=== PATIENT | male | born 1970 | race Caucasian/White ===

== ENCOUNTER 2024-12-21 14:25 | Emergency (ER) | payer OTHER, SELFPAY ==
[2024-12-21 14:37] VITALS: BP 174/110
--- NOTE | 2024-12-21 15:34 | ED.GENMED ---
History of Present Illness
General
Chief Complaint: Flank Pain
Source: patient and spouse
Exam Limitations: none
Time Seen by Provider: 12/21/24 15:20
Nursing documentation reviewed up to this point in time: agreed with
History of Present Illness
History of Present Illness:
54-year-old male with a past medical history of hypertension, hyperlipidemia who presents to the emergency room for evaluation of flank pain. Patient reports onset of symptoms this morning around 11 AM and have been waxing and waning since then.
He reports a sharp pain in the right flank. Radiates towards the tip of the penis. No clear triggering or relieving factors noted. He denies any trauma or injury. He says he did notice some faint hematuria yesterday but has not noticed any
dysuria. He denies any fevers or chills. He has had some nausea and a few episodes of vomiting today. He says he had similar symptoms with a kidney stone in the past although it has been many years since his last stone.
Past History
Past History
ED Past Medical History: Other (kidney stone )
ED Past Surgical History: None
Social History
Tobacco: Non-smoker
Alcohol: None
Drug: None
Personal:
Living: with family
Employment: Employed
Family History
Family History: Other (no significant)
Review of Systems
Review of Systems
All Other Systems: ROS reviewed and negative except as documented in HPI and ROS
Constitutional: Denies fever or chills
Respiratory: Denies trouble breathing
Cardiac: Denies chest pain
ABD/GI: Reports nausea and vomiting; Denies abdominal pain
: Reports flank pain and bleeding (Faint hematuria); Denies dysuria
Neurological: Denies headache
Phy Exam
Physical Exam
Physical Exam:
General: Awake, alert; no acute distress
Head: Normocephalic, atraumatic
Eyes: Conjunctiva normal, sclera anicteric
Throat: Airway intact, handling secretions
Neck: Trachea midline, supple without meningismus
Lungs: Breathing comfortably no distress
Heart: Regular rate
Abd: Soft, non distended, nontender
Back: No CVA tenderness
Neuro: No gross deficits
Skin: no rash in area of concern
Extremities: Warm and well-perfused
Scores
Heart Failure Risk
Heart Failure Risk Score: Not Applicable
Heart Score for Chest Pain Patients
STEMI patient?: Not applicable
Withdrawal Assessment of Alcohol
Withdrawal Assessment Completed?: Not applicable
Course
Orders/Labs/Results
Orders:
Orders
12/21/24 15:33
CT Abd/pel Without Iv Or Oral Urgent
Comment:
Reason For Exam: right flank pain
0.9% Sodium Chloride 1000 ml [Nss] 1,000 ml IV BOLUS
Ketorolac [Toradol] 15 mg IV NOW STA
Ondansetron Injectable [Zofran] 4 mg IV NOW STA
12/21/24 15:48
Complete Blood Count/With Diff Urgent
Comprehensive Metabolic Panel Urgent
12/21/24 17:50
Urinalysis Reflex To Culture Urgent
Date Specimen was Collected: 12/21/24
Time Specimen was Collected: 17:48
Urine Microscopic Reflex Cult Urgent
Urine Culture Urgent
[place] Source: U
Specimen Description:
Obtained by: Random
Date Specimen was Collected: 12/21/24
Time Specimen was Collected: 17:48
12/21/24 17:57
Tamsulosin [Flomax] 0.4 mg PO NOW STA
Abnormal Lab Results
12/21/24 12/21/24
15:48 17:50
MPV 10.7 H fL
(7.4-10.4)
Abs Immat Gran (auto) 0.1 H 10^3/uL
(0-0.05)
Absolute Neuts (auto) 8.8 H 10^3/uL
(1.4-6.5)
Absolute Lymphs (auto) 0.7 L 10^3/uL
(1.2-3.4)
Immature Gran % 0.6 H %
(0-0.5)
Neutrophils % 85.8 H %
(42.2-75.2)
Lymphocytes % 7.2 L %
(20.5-51.1)
Creatinine 1.5 H mg/dL
(0.7-1.3)
Glucose 153 H mg/dl
(70-99)
Ur Occult Blood Reflex 1+ A
(Negative)
Leukocyte Esterase Rfl 2+ A
(Negative)
12/21/24 15:48
12/21/24 15:48
Vital Signs
Initial and Last Documented VS:
Initial Vital Signs
Temp Pulse Resp BP Pulse Ox
37.6 C 65 16 174/110 98
12/21/24 14:37 12/21/24 14:37 12/21/24 14:37 12/21/24 14:37 12/21/24 14:37
Last Documented Vital Signs
Temp Pulse Resp BP Pulse Ox
37.6 C 64 18 167/95 96
12/21/24 14:37 12/21/24 16:33 12/21/24 16:33 12/21/24 16:33 12/21/24 16:33
MDM/Problems Addressed
Differential Diagnosis Includes:
Nephrolithiasis, UTI, muscular pain; low suspicion for cholelithiasis or appendicitis with no abdominal tenderness
MDM/Problems Addressed:
54-year-old male presents for evaluation of right flank pain waxing and waning intensity since 11 AM. Similar in quality prior kidney stones. Hypertensive otherwise normal vitals. Physical exam as above. Plan to place an IV check labs including
a CBC and a CMP, urinalysis. Will check CT of the abdomen pelvis. Treat pain and nausea. Provide fluids. Monitor closely reassess after the above.
Labs reviewed: CBC unremarkable, CMP no clinically significant abnormalities�creatinine 1.5 is stable from prior. His urinalysis is negative for infection. CT shows 6 mm stone distal right ureter. Patient's pain is very well-controlled I think he
is a reasonable candidate for trial passage. Plan to discharge with pain control, Flomax, advised plenty of fluids. Urology referral. Patient comfortable with this plan. We spoke about return precautions and follow-up plan in detail and all
questions were answered.
Acute Exacerbation and/or Progression of Chronic Illness:
Acutely hypertensive likely on the basis of pain�will treat pain but no indication for emergent antihypertensives
Acute Exacerbation and/or Progression of Chronic Illness: HTN
*Radiology
Radiology exam reviewed: radiology read reviewed
*Pulse Oximetry
Patient hypoxic: no
*Critical Care Note
Total Time (30-74mins, 75-104mins- exclusive of procedures): Not Applicable
Data Reviewed
Source: patient
ED Attending Note
-
Portions of this chart may have been created with voice recognition software.� Occasional wrong word or��sound alike� substitutions may have occurred due to the inherent limitations of voice recognition software.
Discharge Plan
Departure
Patient Disposition: Home (Routine Discharge)
Date of Disposition: 12/21/24
Time of Disposition: 18:19
Patient with high blood pressure during this ER visit?: Yes
Discharge Problem:
Right nephrolithiasis
Instructions: Kidney Stones (DC)
Prescriptions:
New
tamsulosin [Flomax] 0.4 mg capsule
0.4 mg PO DAILY Qty: 14 0RF
oxycodone 5 mg tablet
5 mg PO Q8H PRN (Reason: Pain) Qty: 10 0RF
ondansetron 4 mg tablet,disintegrating
4 mg PO TIDPRN PRN (Reason: nausea/vomiting) Qty: 10 0RF
No Action
ondansetron HCl 4 MG tablet
4 mg PO Q8HPRN PRN (Reason: nausea) Qty: 30 0RF
Referrals:
Bhaskar Jefferson MD [Active] - Call in 1-3 days for appt (Urology)
Amado Hernadez MD [Family Provider] - Follow up in 1 week (Blood pressure recheck)
Activity Restrictions/Additional Instructions:
Thank you for visiting the Emergency Department at [facility].
1. Please schedule a follow up appointment as directed. Call first thing tomorrow morning to make an appointment.
2. If indicated, please take your medications as instructed and indicated on discharge paperwork.
3. If any of your symptoms do not improve, or persist, or become more severe within 6-12 hours, please return to the emergency department for further care.
4. Please return to the emergency department if you develop a headache, neck pain/stiffness, fever greater than 100.4F, chest pain, shortness of breath, persistent nausea, vomiting, slurred speech, difficulty walking, numbness/tingling, weakness,
signs of infection or any other symptoms that are worrisome to you.
Please call [phone] if you have any questions.
Interventions
Interventions:
*Risk Screen - Suicide Last Done: 12/21/24 14:37
*General Assessment Last Done: 12/21/24 15:39
*Neglect/Abuse Screening Last Done: 12/21/24 14:37
*ED- Fall Risk Assessment Last Done: 12/21/24 15:39
*ED COVID-19 Vaccine History Last Done: 12/21/24 15:39
PH-Hwnbfr-Lucojpnnxh Assessment Last Done: 12/21/24 15:43
ED-Male Genitourinary Assessment Last Done: 12/21/24 15:43
Discharge Date and Time
Print Language: AMHARIC
[2024-12-21 15:39] VITALS: BMI 30.9
[2024-12-21] MEDS: NSS 1000 IV (15:48)
[2024-12-21] MEDS: TORADOL 15 MG IV (15:49)
[2024-12-21] MEDS: ZOFRAN 4 MG IV (15:49)
[2024-12-21 15:56] LABS: % Basophils 0.4 % (0-2); % Eosinophils 0.1 % (0-6); % Immature Granulocytes 0.6 % (0-0.5); % Lymphocytes 7.2 % (20.5-51.1); % Monocytes 5.9 % (1.7-9.3); % Neutrophils 85.8 % (42.2-75.2); Absolute Immature Granulocytes 0.1 10^3/uL (0-0.05); Absolute Lymphocytes 0.7 10^3/uL (1.2-3.4); Absolute Monocytes 0.6 10^3/uL (0.1-0.6); Absolute Neutrophils 8.8 10^3/uL (1.4-6.5); Hematocrit 41.5 % (39.0-52.0); Hemoglobin 14.7 g/dL (13.0-18.0); Mean Corp Hgb Conc. 35.4 g/dL (33.0-37.0); Mean Corpuscular Hgb 29.4 pg (27.0-31.0); Mean Platelet Volume 10.7 fL (7.4-10.4); Nucleated Red Blood Cells % 0 % (-); Platelet Count 161 10^3/uL (130-400); Red Cell Dist. Width 12.8 % (11.5-14.5); White Blood Cell Count 10.2 10^3/uL (4.8-10.8)
[2024-12-21 16:10] LABS: ALT (SGPT) 25 U/L (0-50); AST (SGOT) 21 U/L (17-59); Albumin 4.3 g/dl (3.5-5.0); Alkaline Phosphatase 43 U/L (38-126); Blood Urea Nitrogen 19 mg/dl (9-20); Calcium 9.6 mg/dl (8.4-10.2); Carbon Dioxide 25 mmol/L (22-30); Chloride 106 mmol/L (98-107); Estimated Creatinine Clearance 64 ml/min; Glucose 153 mg/dl (70-99); Sodium 138 mmol/L (135-145); Total Protein 6.8 g/dl (6.3-8.2); eGFR 54.98
[2024-12-21 16:33] VITALS: BP 167/95
[2024-12-21 18:07] LABS: Urine Albumin Negative (Neg - Trace); Urine Bilirubin Negative (Negative); Urine Character Clear (Clear); Urine Color Yellow; Urine Glucose Negative (Negative); Urine Ketone Negative (Negative); Urine Leukocyte 2+ (Negative); Urine Nitrite Negative (Negative); Urine Occult Blood 1+ (Negative); Urine Specific Gravity 1.025 (<1.030); Urine Urobilinogen Negative (Neg - 1+)
[2024-12-21] MEDS: FLOMAX 0.4 MG PO (18:09)
[2024-12-21 18:18] LABS: Urine Squamous Cell 0-2 /LPF (Few)
[2024-12-21 18:19] LABS: Urine Bacteria Few (Negative); Urine Mucus Many; Urine White Cell 0-2 /HPF (0-5)
== END 2024-12-21 18:24 | disposition home or self-care (01) ==
LOC: EMR 14:25
PROVIDERS: EMERGENCY PHYSICIAN Emergency Medicine; FAMILY PHYSICIAN Family Medicine
DX: N20.1 Calculus of ureter (principal); R11.2 Nausea with vomiting, unspecified; I10 Essential (primary) hypertension; E78.5 Hyperlipidemia, unspecified; Z87.442 Personal history of urinary calculi
CPT/HCPCS: 99284; 96374; 96375; 96361; 74176; 80053; 81003; 81015; 85025; 87086

== ENCOUNTER 2024-12-25 09:08 | Inpatient (IN) | payer OTHER, SELFPAY ==
[2024-12-25] VITALS (15 sets, daily range): BP systolic 105–142; BP diastolic 64–91; BMI 30.1; BMI 29.5
--- NOTE | 2024-12-25 05:46 | ED.GENMED ---
History of Present Illness
<Richard Rico DO - Last Filed: 12/25/24 06:16>
General
Chief Complaint: Flank Pain
Source: patient
Time Seen by Provider: 12/25/24 05:33
History of Present Illness
History of Present Illness:
This is a 54-year-old male who presents with persistent pain in the right low back. Was recently diagnosed with a 6 mm kidney stone. Patient also admits that he has been having fevers and chills at home with some sweating. He did take Motrin 2
hours ago states feels a little better but was concerned in light of the fact that the pain worsened yesterday and he has not passed the stone and now is having subjective fevers. He was told by the urologist to come in to have that. He is
followed by Dr. Jefferson.
Past History
<Richard Rico DO - Last Filed: 12/25/24 06:16>
Past History
ED Past Medical History: HTN, Hypercholesterolemia and Other (kidney stone )
ED Past Surgical History: None
Social History
Tobacco: Non-smoker
Alcohol: None
Drug: None
Personal:
Living: with family
Employment: Employed
Family History
Family History: Other (no significant)
Phy Exam
<Richard Rico DO - Last Filed: 12/25/24 06:16>
Physical Exam
Physical Exam:
CONSTITUTIONAL Patient alert and oriented to person, place and time. Well-appearing. Vital signs reviewed.
HEAD atraumatic, normocephalic.
EYES eyelids normal to inspection, Extraocular muscles intact, Conjunctiva normal, Sclera normal.
NECK normal range of motion, Trachea midline, no jugular venous distention.
RESPIRATORY CHEST No respiratory distress noted, Chest expansion equal, Bilateral breath sounds clear.
CARDIOVASCULAR regular rate and rhythm, Heart sounds normal.
ABDOMEN abdomen nontender, Bowel sounds normal. No distention.
BACK normal inspection, no obvious deformities, mild right CVA tenderness
UPPER EXTREMITY range of motion normal, Motor strength normal, no cyanosis, no edema.
LOWER EXTREMITY range of motion normal, Motor strength normal, no cyanosis, no edema.
NEURO Speech normal, No focal motor deficits, [place] coma scale 15, Memory normal, Cranial Nerves intact to screening exam.
SKIN skin warm, dry, and normal in color.
Sepsis
<Raudel Akins Jr. PA-C - Last Filed: 12/25/24 07:04>
Sepsis Screening
Sepsis Assessment: Sepsis Ruled Out
Sepsis Screen
Sepsis Screen: Sepsis Ruled Out
Date: 12/25/24
Time: 07:04
Course
<Richard Rico DO - Last Filed: 12/25/24 06:16>
Orders/Labs/Results
Orders:
Orders
12/25/24 05:27
Urinalysis Reflex To Culture Urgent
Date Specimen was Collected: 12/25/24
Time Specimen was Collected: 05:25
Urine Microscopic Reflex Cult Urgent
Urine Culture Urgent
[place] Source: U
Specimen Description:
Date Specimen was Collected: 12/25/24
Time Specimen was Collected: 05:25
12/25/24 06:05
Basic Metabolic Panel Urgent
Complete Blood Count/With Diff Urgent
Lactic Acid Q4H
Comment: CANCEL 2nd LACTIC ACID IF 1st LACTIC ACID IS LESS THAN 2
Blood Culture Q30M
[place] Source: Blood/Venous
Specimen Description:
12/25/24 06:24
Blood Culture Q30M
[place] Source: Blood/Venous
Specimen Description:
12/25/24 07:02
CefTRIAXone [Rocephin] 2,000 mg IV NOW STA
Abnormal Lab Results
12/25/24 12/25/24
05:27 06:05
MPV 10.5 H fL
(7.4-10.4)
Absolute Neuts (auto) 6.7 H 10^3/uL
(1.4-6.5)
Absolute Lymphs (auto) 1.0 L 10^3/uL
(1.2-3.4)
Absolute Monos (auto) 1.0 H 10^3/uL
(0.1-0.6)
Lymphocytes % 11.6 L %
(20.5-51.1)
Monocytes % 11.2 H %
(1.7-9.3)
BUN 24 H mg/dl
(9-20)
Creatinine 1.7 H mg/dL
(0.7-1.3)
Glucose 119 H mg/dl
(70-99)
Ur Occult Blood Reflex 4+ A
(Negative)
Leukocyte Esterase Rfl 2+ A
(Negative)
Urine WBC (Reflex) 11-15 A /HPF
(0-5)
Urine Albumin (Reflex) 1+ A
(Neg - Trace)
12/25/24 06:05
12/25/24 06:05
Vital Signs
Initial and Last Documented VS:
Initial Vital Signs
Temp Pulse Resp BP Pulse Ox
99.4 F 73 14 135/87 96
12/25/24 05:20 12/25/24 05:20 12/25/24 05:20 12/25/24 05:20 12/25/24 05:20
Last Documented Vital Signs
Temp Pulse Resp BP Pulse Ox
99.4 F 73 14 128/81 97
12/25/24 05:20 12/25/24 05:20 12/25/24 05:20 12/25/24 06:22 12/25/24 06:30
<Raudel Akins Jr., NGHIA - Last Filed: 12/25/24 07:04>
Orders/Labs/Results
Orders:
Orders
12/25/24 05:27
Urinalysis Reflex To Culture Urgent
Date Specimen was Collected: 12/25/24
Time Specimen was Collected: 05:25
Urine Microscopic Reflex Cult Urgent
Urine Culture Urgent
[place] Source: U
Specimen Description:
Date Specimen was Collected: 12/25/24
Time Specimen was Collected: :25
12/25/24 06:05
Basic Metabolic Panel Urgent
Complete Blood Count/With Diff Urgent
Lactic Acid Q4H
Comment: CANCEL 2nd LACTIC ACID IF 1st LACTIC ACID IS LESS THAN 2
Blood Culture Q30M
[place] Source: Blood/Venous
Specimen Description:
12/25/24 06:24
Blood Culture Q30M
[place] Source: Blood/Venous
Specimen Description:
12/25/24 07:02
CefTRIAXone [Rocephin] 2,000 mg IV NOW STA
Abnormal Lab Results
12/25/24 12/25/24
05:27 06:05
MPV 10.5 H fL
(7.4-10.4)
Absolute Neuts (auto) 6.7 H 10^3/uL
(1.4-6.5)
Absolute Lymphs (auto) 1.0 L 10^3/uL
(1.2-3.4)
Absolute Monos (auto) 1.0 H 10^3/uL
(0.1-0.6)
Lymphocytes % 11.6 L %
(20.5-51.1)
Monocytes % 11.2 H %
(1.7-9.3)
BUN 24 H mg/dl
(9-20)
Creatinine 1.7 H mg/dL
(0.7-1.3)
Glucose 119 H mg/dl
(70-99)
Ur Occult Blood Reflex 4+ A
(Negative)
Leukocyte Esterase Rfl 2+ A
(Negative)
Urine WBC (Reflex) 11-15 A /HPF
(0-5)
Urine Albumin (Reflex) 1+ A
(Neg - Trace)
12/25/24 06:05
12/25/24 06:05
Vital Signs
Initial and Last Documented VS:
Initial Vital Signs
Temp Pulse Resp BP Pulse Ox
99.4 F 73 14 135/87 96
12/25/24 05:20 12/25/24 05:20 12/25/24 05:20 12/25/24 05:20 12/25/24 05:20
Last Documented Vital Signs
Temp Pulse Resp BP Pulse Ox
99.4 F 73 14 128/81 97
12/25/24 05:20 12/25/24 05:20 12/25/24 05:20 12/25/24 06:22 12/25/24 06:30
<Richard Rico DO - Last Filed: 12/25/24 06:16>
MDM/Problems Addressed
Differential Diagnosis Includes:
Bacteremia, sepsis, infected kidney stone, ureteral colic
MDM/Problems Addressed:
Ureteral colic, ureterolithiasis
<Richard Rico DO - Last Filed: 12/25/24 06:16>
*Pulse Oximetry
Patient hypoxic: no
*Critical Care Note
Total Time (30-74mins, 75-104mins- exclusive of procedures): Not Applicable
Data Reviewed
Review of Other/Old Records Reveals: Radiology Studies (CT scan report reviewed from December 21 revealing 6 mm distal right ureteral calculus with associated mild right hydronephrosis)
Source: patient
<Richard Rico DO - Last Filed: 12/25/24 06:16>
Patient Management
Escalation/DeEscalation of care consider admission/obs:
subjective fevers at home in the face of a 6 mm stone. Anticipate admission. Await labs
<Raudel Akins Jr., PA-C - Last Filed: 12/25/24 07:04>
Update Note
Update Note:
Raudel Akins PA-C////care transitioned to or pending patient's laboratory assessment as well as urinalysis. The patient did have concerns of subjective fever at home raising concerns for possible infected stone. Patient is following with
Ronny. Urinalysis with increasing white blood cells. Concern for infected stone Case discussed with urology who will likely take him to the OR this morning. Started on IV antibiotics. Stable throughout ER stay.
ED Attending Note
<Richard Rico DO - Last Filed: 12/25/24 06:16>
-
Portions of this chart may have been created with voice recognition software.� Occasional wrong word or��sound alike� substitutions may have occurred due to the inherent limitations of voice recognition software.
Discharge Plan
Departure
Patient Disposition: Admit
Date of Disposition: 12/25/24
Time of Disposition: 07:03
Admit to: Med/Surg
Admit to doctor: Popeye
Presentation/result/management discussed w/ accepting MD/DO: Hospitalist
Patient with high blood pressure during this ER visit?: No
Condition: Good
Covid-19: Not Applicable
Discharge Problem:
Calculus, ureteral, Urinary tract infection
Prescriptions:
No Action
ondansetron HCl 4 MG tablet
4 mg PO Q8HPRN PRN (Reason: nausea) Qty: 30 0RF
tamsulosin [Flomax] 0.4 mg capsule
0.4 mg PO DAILY Qty: 14 0RF
oxycodone 5 mg tablet
5 mg PO Q8H PRN (Reason: Pain) Qty: 10 0RF
ondansetron 4 mg tablet,disintegrating
4 mg PO TIDPRN PRN (Reason: nausea/vomiting) Qty: 10 0RF
Interventions
Interventions:
*Risk Screen - Suicide Last Done: 12/25/24 05:20
*General Assessment Last Done: 12/25/24 06:15
*Neglect/Abuse Screening Last Done: 12/25/24 06:15
*ED- Fall Risk Assessment Last Done: 12/25/24 06:15
*ED COVID-19 Vaccine History Last Done: 12/25/24 06:15
JM-Igchhx-Kqxbyqvois Assessment Last Done: 12/25/24 06:15
ED-Male Genitourinary Assessment Last Done: 12/25/24 06:15
Discharge Date and Time
Print Language: TURKMEN
[2024-12-25 05:47] LABS: Urine Albumin 1+ (Neg - Trace); Urine Bilirubin Negative (Negative); Urine Character Slightly Cloudy (Clear); Urine Color Yellow; Urine Glucose Negative (Negative); Urine Ketone Negative (Negative); Urine Leukocyte 2+ (Negative); Urine Nitrite Negative (Negative); Urine Occult Blood 4+ (Negative); Urine Urobilinogen Negative (Neg - 1+)
[2024-12-25 06:26] LABS: % Basophils 0.3 % (0-2); % Eosinophils 1.5 % (0-6); % Immature Granulocytes 0.3 % (0-0.5); % Lymphocytes 11.6 % (20.5-51.1); % Monocytes 11.2 % (1.7-9.3); % Neutrophils 75.1 % (42.2-75.2); Absolute Eosinophils 0.1 10^3/uL (0-0.7); Absolute Neutrophils 6.7 10^3/uL (1.4-6.5); Hematocrit 41.2 % (39.0-52.0); Hemoglobin 14.4 g/dL (13.0-18.0); Mean Corpuscular Volume 82.9 fL (80.0-94.0); Mean Platelet Volume 10.5 fL (7.4-10.4); Nucleated Red Blood Cells % 0 % (-); Platelet Count 145 10^3/uL (130-400); Red Blood Cell Count 4.97 10^6/uL (4.70-6.10); Red Cell Dist. Width 12.8 % (11.5-14.5); White Blood Cell Count 8.9 10^3/uL (4.8-10.8)
[2024-12-25 06:27] LABS: Urine Squamous Cell None seen /LPF (Few)
[2024-12-25 06:30] LABS: Urine Red Blood Cell 0-2 /HPF (0-2)
[2024-12-25 06:34] LABS: Lactic Acid 0.7 mmol/L (0.7-2.0)
[2024-12-25 06:35] LABS: Blood Urea Nitrogen 24 mg/dl (9-20); Calcium 9.3 mg/dl (8.4-10.2); Carbon Dioxide 26 mmol/L (22-30); Chloride 106 mmol/L (98-107); Estimated Creatinine Clearance 56 ml/min; Glucose 119 mg/dl (70-99); Potassium 3.8 mmol/L (3.5-5.1); Sodium 140 mmol/L (135-145); eGFR 47.31
--- NOTE | 2024-12-25 07:14 | HPS.HSE ---
Family Physician
-
Family Physician: Amado Hernadez
Chief Complaint
-
back pain
History of Present Illness
Mr. Gregg Freitas is a 54 yo man with hx HTN, HLD, ER visit 12/21 where found to have distal 6mm right ureteral stone represents to the ER for persistent pain.
Patient woke up in chills/sweats this morning and so came to the ER. Pain is right lower flank extending to groin. He took motrin at home before coming in.
No chest pain or shortness of breath. No nausea/vomiting. No LE swelling. No measured fever.
Medical History
Past Medical History
Past Medical History: Reports Other (HTN, HLD, nephrolithiasis )
Past Surgical History: Reports Other
Social History
Tobacco: Non-smoker
Alcohol: None
Family History
Family History: Not pertinent
Allergies / Home Medications
Allergies reflects when Allergies were last updated in [facility].
Home Medications with original date entered in [facility]
Allergy/Medication List:
Allergies
Allergy/AdvReac Type Severity Reaction Status Date / Time
No Known Allergies Allergy Verified 12/25/24 05:20
Home Medications
ondansetron HCl 4 mg tablet 4 mg PO Q8HPRN PRN nausea #30 tabs 10/21/15
ondansetron 4 mg disintegrating tablet 4 mg PO TIDPRN PRN nausea/vomiting #10 tabs 12/21/24
oxycodone 5 mg tablet 5 mg PO Q8H PRN Pain #10 tabs 12/21/24
tamsulosin 0.4 mg capsule (Flomax) 0.4 mg PO DAILY #14 caps 12/21/24
*awaiting med rec
Review of Systems
-
History Source: Patient
A 12 point ROS was completed and negative except as noted: Yes
Physical Exam
Vital Signs
Vital Signs
Temp Pulse Resp BP Pulse Ox
99.4 F 73 14 128/81 97
12/25/24 05:20 12/25/24 05:20 12/25/24 05:20 12/25/24 06:22 12/25/24 06:30
Physical Exam
General: No Apparent Distress
HEENT: PERRLA
Respiratory: Clear; No Wheezes
Cardiac: S1/S2 and Regular Rhythm
GI: Soft and Non Tender
Genito-urinary: Costovertebral angle tend (right)
Musculoskeletal: No Edema
Skin: Warm and Dry; No Rash
Neuro: AO x 3
Psych: Calm
Laboratory Results
-
12/25/24 06:05
12/25/24 06:05
Laboratory Results
Lactic Acid Cancelled 12/25/24 09:45
Data Reviewed
-
Diagnostic Radiology: Report Reviewed by me
Lab Data: Labs Reviewed by me
Impression/Plan
-
Mr. Gregg Freitas is a 54 yo man with hx HTN, HLD, ER visit 12/21 where found to have distal 6mm right ureteral stone represents to the ER for persistent pain.
Triage VS: T 99.4, P 73, RR 14, BP 135/87, SpO2 96%
LABS: WBC 8.9, Hg 14.4, PLT 145, Na 140, K+ 3.8, BUN 24, Cr 1.7 , lactate 0.7
UA: 11-[address] A/P on 12/21/24
IMPRESSION:
6 mm distal right ureteral calculus with associated mild right hydroureteronephrosis.
Urinary Tract Infection in setting of 6mm obstructing right ureteral stone
-s/p IV Ceftriaxone given in the ER
-Urology consulted, plan is for OR this morning
-admit to med/surg
-keep NPO
-NS @ 125
-IV Ceftriaxone
-F/U urine cultures
-oxycodone PRN pain (avoid NSAIDs in LINDA)
LINDA versus CKD
-creatinine of 1.5 seen in [facility] in 2016; patient denies history of CKD
-monitor renal function post stent placement, IVF
-avoid NSAIDs
Essential HTN
-patient states he takes Losartan and Amlodipine at home, doesn't know doses
-*awaiting med rec
HLD
-patient reports taking a statin at home, doesn't know brand or dose
DVT PPx SCD
FULL CODE
[2024-12-25] MEDS: NSS 1000 IV ×2 (07:39→19:31)
[2024-12-25] MEDS: ROCEPHIN 2000 MG IV (07:39)
--- NOTE | 2024-12-25 09:10 | EDRN ---
urologist currently at the pts bedside
--- NOTE | 2024-12-25 10:25 | EDRN ---
this RN called the receiving unit and notified them that paper report was tubed up
--- NOTE | 2024-12-25 12:48 | CONS.URO ---
Consultation
-
Date/Time Consultation Performed: 12/25/24 at 9AM
Performing Provider: Peffer
Reason for Consultation: Stone
Medical History
History of Present Illness
54M with prior history of kidney stone 15 years ago
Presented 12/21/24 for R flank pain and found to have 6mm distal R ureteral stone
Was sent home for trial of passage
Had persistent intermittent pain and this AM had sweats and chills though did not measure his temp
He came to ER and had slightly elevated but normal temps without other clear signs of sepsis
Urinalysis mildly positive
He was admitted for possible febrile obstructing stone
Past Medical History
Past Medical History: Hypercholesterolemia, Hyperthyroidism and Other (kidney stone)
Past Surgical History: None
Social History
Drug: None
Personal:
Living: With Family
Family History
Family History: Reviewed & Not Pertinent
Allergies/Home Medications
Allergies
Allergy/AdvReac Type Severity Reaction Status Date / Time
No Known Allergies Allergy Verified 12/25/24 05:20
Home Medications
�Medication �Instructions �Recorded �Confirmed �Type
ondansetron 4 mg disintegrating 4 mg PO TIDPRN PRN nausea/vomiting 12/21/24 12/25/24 Rx
tablet #10 tabs
amlodipine 2.5 mg tablet (Norvasc) 2.5 mg PO QPM Blood Pressure 12/25/24 12/25/24 History
coQ10 (ubiquinol) 100 mg capsule 100 mg PO DAILY Supplement 12/25/24 12/25/24 History
ibuprofen 400 mg tablet 400 mg PO Q6HPRN PRN mild pain 12/25/24 12/25/24 History
losartan 100 1 tab PO DAILY Blood Pressure 12/25/24 12/25/24 History
mg-hydrochlorothiazide 12.5 mg
tablet
polyethylene glycol 3350 17 gram 8.5 g PO DAILYPRN PRN constipation 12/25/24 12/25/24 History
oral powder packet (Miralax)
rosuvastatin 10 mg tablet (Crestor) 10 mg PO QPM cholesterol 12/25/24 12/25/24 History
tamsulosin 0.4 mg capsule (Flomax) 0.4 mg PO DAILY Urinary Issue 12/25/24 12/25/24 History
Physical Exam
Vital Signs
Vital Signs
Temp Pulse Resp BP Pulse Ox
99.3 F 67 17 142/86 97
12/25/24 10:49 12/25/24 10:49 12/25/24 10:49 12/25/24 10:49 12/25/24 10:49
Lab / Testing Results
Laboratory Results
12/25/24 06:05
12/25/24 06:05
Physical Exam
General: Well Developed, Well Nourished and No Apparent Distress
Respiratory: Clear and Non Labored Respirations
GI: Soft, Non Tender and Non Distended
Genito-urinary: No Costovertebral Tend
Neuro: AO x 3
Psych: Calm and Intact Judgement
Assessment / Plan
-
54M with R distal ureteral stone symptomatic since 12/21/24
Admitted for subjective fever/chills and persistent pain
- NPO for OR today - cystoscopy R ureteral stent, possible ureteroscopy/laser if no signs of developing sepsis/acute UTI
- Antibiotics pending culture
- IVF
- Strain urine
--- NOTE | 2024-12-25 14:28 | CM ---
Patient seen at bedside with Simi
IA completed
CM role explained
Lives in a 2 story home with , 4 steps to enter, flight to bedroom/bath
PLOF: independent
Denies DME
Denies VN/Rehab
Denies insecurities
PCP: Amado Hernadez
Pharmacy: [facility], [facility]
PLAN: home, no needs anticipated, when medically stable
[2024-12-25] MEDS: TYLENOL 650 MG PO ×2 (14:53→19:42)
--- NOTE | 2024-12-25 15:00 | PTCARENOTE ---
Pt received from ED. Walked to bed 318-2 with minimal assistance. NSS infusing @125ml/hr. VSS. pt complained of 4/10 pain on admission, denied pain medication. Pt now complaining of 7/10 pain in R flank area, PRN tylenol administered. OR called for
report. Awaiting transport at this time.
--- NOTE | 2024-12-25 16:41 | W.IMMPOSTOP ---
Surgical Immed Post Op Note
-
Primary Surgeon: Peffer
Assisting Surgeon: -
Pre-op Diagnosis: R ureteral stone
Post-op Diagnosis: same
Procedure Performed: Cysto, R ureteroscopy, laser lithotripsy, stent placement
Anesthesia Type: general
Specimen / Cultures: stone analysis
Estimated Blood Loss: -
Complications: none
Operative Findings: mild debris, no purulent urine
[2024-12-25] MEDS: FLOMAX 0.4 MG PO (17:46)
[2024-12-26] MEDS: TYLENOL 650 MG PO ×3 (01:33→11:32)
[2024-12-26] MEDS: NSS 1000 IV ×2 (03:27→11:31)
[2024-12-26 06:38] LABS: % Basophils 0.1 % (0-2); % Immature Granulocytes 0.4 % (0-0.5); % Lymphocytes 6.6 % (20.5-51.1); % Monocytes 4.5 % (1.7-9.3); % Neutrophils 88.4 % (42.2-75.2); Absolute Lymphocytes 0.5 10^3/uL (1.2-3.4); Absolute Monocytes 0.3 10^3/uL (0.1-0.6); Absolute Neutrophils 6.7 10^3/uL (1.4-6.5); Hematocrit 37.7 % (39.0-52.0); Hemoglobin 13.4 g/dL (13.0-18.0); Mean Corp Hgb Conc. 35.5 g/dL (33.0-37.0); Mean Corpuscular Hgb 29.9 pg (27.0-31.0); Mean Corpuscular Volume 84.2 fL (80.0-94.0); Mean Platelet Volume 10.7 fL (7.4-10.4); Nucleated Red Blood Cells % 0 % (-); Platelet Count 166 10^3/uL (130-400); Red Blood Cell Count 4.48 10^6/uL (4.70-6.10); Red Cell Dist. Width 12.6 % (11.5-14.5); White Blood Cell Count 7.5 10^3/uL (4.8-10.8)
[2024-12-26 07:26] LABS: Blood Urea Nitrogen 23 mg/dl (9-20); Calcium 8.5 mg/dl (8.4-10.2); Carbon Dioxide 22 mmol/L (22-30); Chloride 112 mmol/L (98-107); Estimated Creatinine Clearance 70 ml/min; Glucose 112 mg/dl (70-99); Magnesium 2.3 mg/dl (1.6-2.3); Potassium 4.3 mmol/L (3.5-5.1); Sodium 142 mmol/L (135-145); eGFR > 60.00
[2024-12-26 07:44] VITALS: BP 143/82
[2024-12-26] MEDS: ROCEPHIN 1000 MG IV (08:16)
[2024-12-26] MEDS: STERILE WATER FOR INJECTION 10 ML IV (08:16)
[2024-12-26] MEDS: Pyridium 100 MG PO (09:15)
--- NOTE | 2024-12-26 11:17 | PTCARENOTE ---
Pt received from assistant shift supervisor RN. He reports over night he had 2 loose BM's. This morning he was feeling better, he called to use the bedpan and over the course of 1.5 hours he had 4 loose black/ burgundy stools. Hgb of 6.8 reported to MD. 2 units
PRBC's ordered with the first unit infusing currently. Pt is currently drowsy and lightheaded. NSR on tele with 1� AVB and frequent PVC's. Currently on 3L NC with sat of 100%. IV sites intact.
--- NOTE | 2024-12-26 12:59 | W.PN.HOSP.TC ---
Addendum entered and electronically signed by Ortiz Jacobsen MD 12/26/24 14:44:
D/W .
Urine CX neg
Would still prefer 5 days of AB at discharge
Pt made aware
OP Follow up with Urology for stent removal.
Original Note:
Today's Communication/Plan
-
Await Urology rounds to make discharge decisions
Assessment / Plan
Assessment / Plan
54-year-old man admitted with UTI with obstructing nephrolithiasis
Denies any pain. Patient is feeling good
On examination cardiovascular system S1-S2 appreciated
Chest clear to auscultation
Abdomen soft and nontender, no CVA tenderness
# Right ureteral stone with right hydroureteronephrosis
Status post cystourethroscopy, laser lithotripsy and stent placement by Dr. Iverson on 12/25/2024
Blood cultures with no growth
Continue ceftriaxone
Urine culture negative
Will need to discuss with urology if antibiotics are not warranted at discharge.
# Acute kidney injury-resolved
# Hypertension-restart losartan hydrochlorothiazide at discharge
# Hyperlipidemia-continue Crestor
# DVT Prophylaxis- SCDS
# Full CODE
Part of this note was created using voice recognition system. Occasional wrong word or��sound alike� substitutions may have inadvertently occurred due to the inherent limitations of voice recognition software. If noted kindly bring it to my
attention for correction.
Anticipated Discharge: Within 24 hours
Subjective/Interval History
-
Date of Service: December 26, 2024
Objective Data
-
Labs:
Laboratory Results
12/26/24
06:16
WBC 7.5
Hgb 13.4
Hct 37.7 L
Plt Count 166
Sodium 142
Potassium 4.3
Chloride 112 H
Carbon Dioxide 22
BUN 23 H
Creatinine 1.2
Glucose 112 H
Calcium 8.5
Vital Signs:
Vital Signs
Temp Pulse Resp BP Pulse Ox
98.9 F 57 18 143/82 95
12/26/24 07:44 12/26/24 07:44 12/26/24 07:44 12/26/24 07:44 12/26/24 07:44
I&O
12/25/24 12/26/24 12/27/24
06:59 06:59 06:59
Intake Total 960 / 960
Output Total 400 / 400
Balance 960 / 960 -400 / -400
--- NOTE | 2024-12-26 13:57 | CM ---
Addendum entered by Laine Ro 12/26/24 15:55:
Patient discharged to home
IMM n/a
Original Note:
Patient seen at bedside.
Procedure Performed: Cysto, R ureteroscopy, laser lithotripsy, stent placement
PLAN: Home, no needs
--- NOTE | 2024-12-26 14:48 | W.DS.TRANS ---
Addendum entered and electronically signed by Ortiz Jacobsen MD 12/26/24 17:25:
Discharge time- [id number]
Original Note:
DC Summary - [employer]
-
Discharge Instructions:
Discharge Diagnosis/Procedures Right ureteral stone with right
hydroureteronephrosis status post laser
lithotripsy and stent placement by Dr. Iverson on
12/25/2024
Acute kidney injury
Hypertension
Hyperlipidemia
Diet As tolerated
Activity As tolerated
Driving Restrictions As prior to admission
Instructions:
Stand-Alone Forms:
Changes to Home Medications: Yes
Discharge Medications:
DC Medications w/original date entered in [facility]
amlodipine 2.5 mg tablet (Norvasc) 2.5 mg PO QPM Blood Pressure 12/25/24
coQ10 (ubiquinol) 100 mg capsule 100 mg PO DAILY Supplement 12/25/24
losartan 100 mg-hydrochlorothiazide 12.5 mg tablet 1 tab PO DAILY Blood Pressure 12/25/24
polyethylene glycol 3350 17 gram oral powder packet (Miralax) 8.5 g PO DAILYPRN PRN constipation 12/25/24
rosuvastatin 10 mg tablet (Crestor) 10 mg PO QPM cholesterol 12/25/24
cefdinir 300 mg capsule 300 mg PO BID Infection #10 caps 12/26/24
phenazopyridine 100 mg tablet 100 mg PO TIDPRN PRN dysuria #20 tabs 12/26/24
tamsulosin 0.4 mg capsule (Flomax) 0.4 mg PO QPM Urinary Issue #0 caps 12/26/24
Home Medication Changes
Ibuprofen discontinued
Phenazopyridine and cefdinir-are new
Pending Results: No
[2024-12-26 15:03] VITALS: BP 141/80
[2024-12-31 10:01] LABS: Stone Analysis Mass 15 mg
== END 2024-12-26 15:50 | disposition home or self-care (01) | DRG 660 ==
LOC: 3 WEST ACU 09:08
PROVIDERS: ADMITTING PHYSICIAN Student in an Organized Health Care Education/Training Program; ATTENDING PHYSICIAN Hospitalist; CONSULT PHYSICIAN Urology; EMERGENCY PHYSICIAN Emergency Medicine; FAMILY PHYSICIAN Family Medicine
PROC: 0T768DZ Dilation of Right Ureter with Intraluminal Device, Via Natural or Artificial Opening Endoscopic (ICD-10-PCS; 2024-12-25)
PROC: 0TC68ZZ Extirpation of Matter from Right Ureter, Via Natural or Artificial Opening Endoscopic (ICD-10-PCS; 2024-12-25)
DX: N13.6 Pyonephrosis (principal); N20.2 Calculus of kidney with calculus of ureter; N17.9 Acute kidney failure, unspecified; I10 Essential (primary) hypertension; E78.00 Pure hypercholesterolemia, unspecified; E05.90 Thyrotoxicosis, unspecified without thyrotoxic crisis or storm
CPT/HCPCS: 74018; 76000; 80048; 81003; 81015; 82365; 83605; 83735; 85025; 87040; 87086; 96361; 96374; 99284; C1769; C2617